=== PATIENT | male | born 1990 | race Hispanic/Latino ===

== ENCOUNTER 2025-04-07 02:16 | Emergency (ER) | payer OTHER | END 2025-04-07 02:59 | LOC: NAV ERS 02:16 | DX: S60.221A Contusion of right hand, initial encounter (principal); Z87.891 Personal history of nicotine dependence; W22.8XXA Striking against or struck by other objects, initial encounter; Y92.142 Bathroom in prison as the place of occurrence of the external cause | CPT/HCPCS: 99283 ==